=== PATIENT | male | born 1970 | race African-American/Black ===

== ENCOUNTER 2021-02-28 21:53 | Emergency (ER) | payer OTHER ==
[~2021-02-28] VITALS: Ht 172.7 cm; Wt 78.0 kg
[2021-03-01 00:58] VITALS: BP 133/95
== END 2021-03-01 00:58 | disposition home or self-care (01) ==
LOC: ER 21:53
DX: S01.81XA Laceration without foreign body of other part of head, initial encounter (principal); S80.212A Abrasion, left knee, initial encounter; S80.211A Abrasion, right knee, initial encounter; W18.09XA Striking against other object with subsequent fall, initial encounter; Y93.55 Activity, bike riding; Y92.89 Other specified places as the place of occurrence of the external cause; Y99.8 Other external cause status

== ENCOUNTER 2021-03-07 15:41 | Emergency (ER) | payer OTHER ==
[~2021-03-07] VITALS: Ht 172.7 cm; Wt 78.0 kg
[2021-03-07 15:41] VITALS: BP 127/83
== END 2021-03-07 16:06 | disposition home or self-care (01) ==
LOC: ER 15:41
DX: S01.112D Laceration without foreign body of left eyelid and periocular area, subsequent encounter (principal); Z48.02 Encounter for removal of sutures; V87.8XXD Person injured in other specified noncollision transport accidents involving motor vehicle (traffic), subsequent encounter